=== PATIENT | male | born 2000 | race Hispanic/Latino ===

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

== ENCOUNTER 2019-05-09 16:30 | Emergency (ER) | payer SELFPAY ==
--- NOTE | 2019-05-09 17:15 | EDPHYS ---
Physician Documentation [facility] Name: Mat Bates Jr Age: 19 yrs Sex: Male : 2000 Arrival Date: 05/09/2019 Time: 16:32 Bed 17 Private MD: ED Physician Fawad Lee HPI: 05/09 17:00 This 19 yrs old Male presents to ER via Ambulatory with complaints of Took cp Wrong Medication. 17:00 The patient presents to the emergency department accidently took 2 tablets of 40 mg cp citalopram that he thought were ibuprofen. Patient reports medication is girlfriend's grandmother. Reports feeling jittery. Took medication at 0300 this morning. 17:00 Associated signs and symptoms: Pertinent negatives: decreased level of consciousness, cp diarrhea, shortness of breath, vomiting. Historical: - Allergies: 16:46 PORK/PORCINE PRODUCT DERIVATIVES; jl7 - Home Meds: 16:46 None [Active]; jl7 - PMHx: 16:46 Asthma; jl7 - PSHx: 16:46 None; jl7 - Immunization history:: Adult Immunizations not up to date. - Social history:: Smoking status: Patient/guardian denies using tobacco. - Ebola Screening: : No symptoms or risks identified at this time. ROS: 17:05 Constitutional: Negative for body aches, chills, fever, poor PO intake. cp 17:05 Cardiovascular: Negative for chest pain, palpitations. cp 17:05 Respiratory: Negative for cough, shortness of breath, wheezing. 17:05 Abdomen/GI: Negative for abdominal pain, nausea, vomiting. 17:05 Skin: Negative for rash. 17:05 Neuro: Negative for altered mental status, headache, weakness. 17:05 Psych: Negative for depression, auditory hallucinations, visual hallucinations, suicide gesture, suicidal ideation. 17:05 All other systems are negative. Exam: 17:11 ECG was reviewed by the Attending Physician. cp 17:12 Constitutional: The patient appears in no acute distress, alert, awake, cp non-diaphoretic, non-toxic, well developed, well nourished. 17:12 Head/Face: Normocephalic, atraumatic. cp 17:12 Eyes: Periorbital structures: appear normal, Pupils: equal, round, and reactive to light and accomodation, Conjunctiva: normal, no exudate, no injection, Lids and lashes: appear normal, bilaterally. 17:12 ENT: External ear(s): are unremarkable, Nose: Mouth: is normal, Posterior pharynx: is normal, airway is patent, no erythema, no exudate. 17:12 Chest/axilla: Inspection: normal, Palpation: is normal, no crepitus, no tenderness. 17:12 Cardiovascular: Rate: normal, Rhythm: regular. 17:12 Respiratory: the patient does not display signs of respiratory distress, Respirations: normal, no use of accessory muscles, no retractions, no splinting, no tachypnea, labored breathing, is not present, Breath sounds: are clear throughout, no decreased breath sounds, no stridor, no wheezing. 17:12 Abdomen/GI: Inspection: abdomen appears normal, Palpation: abdomen is soft and non-tender, in all quadrants. 17:12 Back: pain, is absent. 17:12 Skin: no rash present. 17:12 Neuro: Orientation: to person, place \T\ time. Mentation: is normal, Cerebellar function: is grossly normal, Motor: moves all fours, strength is normal, Sensation: is normal. Vital Signs: 16:46 BP 141 / 97; Pulse 70; Resp 16 S; Temp 98.4(O); Pulse Ox 100% on R/A; Weight 120.2 kg jl7 (R); Pain 0/10; 17:27 BP 133 / 85; Pulse 71; Resp 16; Temp 98.5; Pulse Ox 100% ; bp MDM: 16:50 Patient medically screened. cp 17:10 Differential diagnosis: over medication, cardiac arrythmia. cp 17:15 Data reviewed: vital signs, nurses notes, EKG. cp 17:15 Test interpretation: by ED physician or midlevel provider: ECG. Counseling: I had a cp detailed discussion with the patient and/or guardian regarding: the historical points, exam findings, and any diagnostic results supporting the discharge/admit diagnosis, to return to the emergency department if symptoms worsen or persist or if there are any questions or concerns that arise at home. 05/09 17:00 Order name: EKG; Complete Time: 17:00 cp 05/09 17:00 Order name: EKG - Nurse/Tech; Complete Time: 17:12 cp EC:11 Rate is 60 beats/min. Rhythm is regular. VA interval is normal. QRS interval is normal. cp QT interval is normal. T waves are Inverted in lead III. Interpreted by me. Reviewed by me. Administered Medications: No medications were administered Disposition: 17:35 Chart complete. cp 18:25 Co-signature as Attending Physician, Fawad Lee MD. rn Disposition: 05/09/19 17:15 Discharged to Home. Impression: Poisoning by selective serotonin reuptake inhibitors, accidental (unintentional). - Condition is Stable. - Discharge Instructions: Accidental Overdose. - Medication Reconciliation Form, Thank You Letter, Antibiotic Education, Prescription Opioid Use form. - Follow up: Emergency Department; When: As needed; Reason: Worsening of condition. - Problem is new. - Symptoms have improved. Signatures: Fawad Lee MD MD rn Thang Carranza PA PA cp Leal, Jahala, RN RN jl7 Carlos Braun RN RN bp Corrections: (The following items were deleted from the chart) 17:33 17:15 05/09/2019 17:15 Discharged to Home. Impression: Poisoning by selective serotonin bp reuptake inhibitors, accidental (unintentional). Condition is Stable. Forms are Medication Reconciliation Form, Thank You Letter, Antibiotic Education, Prescription Opioid Use. Follow up: Emergency Department; When: As needed; Reason: Worsening of condition. Problem is new. Symptoms have improved. cp
--- NOTE | 2019-05-09 17:15 | ER ---
Nurse's Notes [facility] Name: Mat Bates Jr Age: 19 yrs Sex: Male : 2000 Arrival Date: 05/09/2019 Time: 16:32 Bed 17 Private MD: Diagnosis: Poisoning by selective serotonin reuptake inhibitors, accidental (unintentional) Presentation: 05/09 16:42 Presenting complaint: Patient states: "I accidently took 2 pills that I thought were jl7 fever reducers at 3 am this morning but they were a depression medicine." Reports taking two 40 mg citalopram, reports "I feel jittery and nauseous. Just weird." Reports symptoms started around 1400. Transition of care: patient was not received from another setting of care. Onset of symptoms was May 09, 2019 at 14:00. Risk Assessment: Do you want to hurt yourself or someone else? Patient reports no desire to harm self or others. Initial Sepsis Screen: Does the patient meet any 2 criteria? No. Patient's initial sepsis screen is negative. Does the patient have a suspected source of infection? No. Patient's initial sepsis screen is negative. Care prior to arrival: None. 16:42 Method Of Arrival: Ambulatory [facility] 16:42 Acuity: RONIT 3 jl7 Triage Assessment: 16:46 General: Appears in no apparent distress. uncomfortable, Behavior is calm, cooperative, jl7 appropriate for age. Pain: Denies pain. Neuro: Level of Consciousness is awake, alert, obeys commands, Oriented to person, place, time, situation. Cardiovascular: Patient's skin is warm and dry. Respiratory: Airway is patent Respiratory effort is even, unlabored, Respiratory pattern is regular, symmetrical. GI: Reports nausea. Derm: Skin is pink, warm \\T\\ dry. Historical: - Allergies: 16:46 PORK/PORCINE PRODUCT DERIVATIVES; jl7 - Home Meds: 16:46 None [Active]; jl7 - PMHx: 16:46 Asthma; jl7 - PSHx: 16:46 None; jl7 - Immunization history:: Adult Immunizations not up to date. - Social history:: Smoking status: Patient/guardian denies using tobacco. - Ebola Screening: : No symptoms or risks identified at this time. Screenin:59 Abuse screen: Denies threats or abuse. Denies injuries from another. Nutritional bp screening: No deficits noted. Tuberculosis screening: No symptoms or risk factors identified. Fall Risk None identified. Assessment: 16:46 General: SEE TRIAGE NOTE. bp 17:26 Reassessment: PT D/C HOME AMBULATORY, DX WITH ACCIDENTAL SSRI POISONING. bp Vital Signs: 16:46 BP 141 / 97; Pulse 70; Resp 16 S; Temp 98.4(O); Pulse Ox 100% on R/A; Weight 120.2 kg jl7 (R); Pain 0/10; 17:27 BP 133 / 85; Pulse 71; Resp 16; Temp 98.5; Pulse Ox 100% ; bp ED Course: 16:32 Patient arrived in ED. rg4 16:46 Triage completed. jl7 16:46 Arm band placed on right wrist. jl7 16:50 Thang Carranza PA is PHCP. cp 16:50 Fawad Lee MD is Attending Physician. cp 16:51 Carlos Braun, RN is Primary Nurse. bp 16:59 Patient has correct armband on for positive identification. Bed in low position. Call bp light in reach. Side rails up X2. Adult w/ patient. 17:23 EKG done, by technology lab teacher. reviewed by Thang SCANLON. 3 17:33 No provider procedures requiring assistance completed. Patient did not have IV access bp during this emergency room visit. Administered Medications: No medications were administered Outcome: 17:15 Discharge ordered by MD. cp 17:33 Discharged to home ambulatory, with family. bp 17:33 Condition: stable 17:33 Discharge instructions given to patient, Instructed on discharge instructions, follow up and referral plans. Demonstrated understanding of instructions, follow-up care. 17:33 Patient left the ED. bp Signatures: Thang Carranza PA PA cp Garcia, Rubi rg4 Karen Fernandez RN RN jl7 Carlos Braun, JESUS MANUEL RN Michell Ramesh 3
[2019-05-09 17:43] VITALS: O2SAT 100
[2019-05-09 17:44] VITALS: BP 133/85; TEMP 98.5
--- NOTE | 2019-05-10 12:14 | EKG ---
Test Date: 2019-05-09 Test Time: 17:09:51 Client Care Coordinator: ADEOLA MEASUREMENT RESULTS: Intervals: Rate: 60 UT: 146 QRSD: 84 QT: 386 QTc: 386 [place]: P: 26 UT: 146 QRS: 75 T: 22 INTERPRETIVE STATEMENTS: Normal sinus rhythm Normal ECG Compared to ECG 12/07/2018 01:26:51 No significant changes Electronically Signed On 05-10-19 12:09:33 CDT by Waylon Norwood
== END 2019-05-09 17:33 | disposition home or self-care (01) ==
LOC: ER 16:30
DX: T43.221A Poisoning by selective serotonin reuptake inhibitors, accidental (unintentional), initial encounter (principal); Z91.018 Allergy to other foods
CPT/HCPCS: 93005; 99283

== ENCOUNTER 2020-10-30 14:32 | Emergency (ER) | payer SELFPAY ==
--- NOTE | 2020-10-30 15:48 | RAD REPORT ---
EXAM DESCRIPTION: RAD - Chest Single View - 10/30/2020 3:41 pm CLINICAL HISTORY: cough, sob COMPARISON: Portable November 2018 TECHNIQUE: AP portable chest image was obtained 10/30/2020 3:41 pm . FINDINGS: Lungs are clear. Heart and vasculature are normal. No measurable pleural effusion and no p neumothorax. No acute bony abnormality seen. No acute aortic findings suspected. IMPRESSION: No acute cardiopulmonary process. No significant change from comparison study.
[2020-10-30] MEDS ORDERED: NA CHLORIDE 0.9% 1,000 ML ONE (15:55)
[2020-10-30] MEDS ORDERED: ONDANSETRON 4 MG/2 ML VIAL ONE (15:55)
[2020-10-30 16:23] LABS: Absolute Lymphocytes (CBC) 1.5 K/uL (0.7-4.9); Basophils % 0.4 % (0-1.3); Hematocrit 47.3 % (39.6-49.0); Lymphocytes % 15.2 % (15.3-44.8); MPV 9.3 fL (7.6-11.3); RBC Red Blood Cell Count 5.78 M/uL (4.33-5.43)
[2020-10-30 16:35] LABS: ALT/SGPT 55 U/L (12-78); AST/SGOT 25 U/L (15-37); Albumin 4.5 g/dL (3.4-5.0); Alkaline Phosphatase 91 U/L (45-117); BUN Blood Urea Nitrogen 10 mg/dL (7-18); Bicarbonate 29 mmol/L (21-32); Bilirubin Direct 0.2 mg/dL (0-0.2); Bilirubin Total 1.3 mg/dL (0.2-1.0); Glucose Level 92 mg/dL (74-106); Lipase 61 U/L (73-393); Potassium 3.6 mmol/L (3.5-5.1); Protein, Total 8.7 g/dL (6.4-8.2); Sodium Level 139 mmol/L (136-145)
[2020-10-30 17:03] LABS: SARS-COV-2 RT PCR POSITIVE (NEGATIVE)
--- NOTE | 2020-10-30 17:18 | EDPHYS ---
Physician Documentation [facility] Name: Mat Bates Jr Age: 20 yrs Sex: Male : 2000 Arrival Date: 10/30/2020 Time: 14:35 Bed 17 Private MD: ED Physician Serg Hooks HPI: 10/30 15:19 This 20 yrs old Male presents to ER via Ambulatory with complaints of Body jmm Aches, Breathing Difficulty. 15:19 The patient presents to the emergency department with nausea, vomiting, diarrhea. jmm Onset: The symptoms/episode began/occurred gradually, 2 day(s) ago. Possible causes: unknown. The symptoms are aggravated by nothing. The symptoms are alleviated by nothing. Onset: The symptoms/episode began/occurred acutely. Associated signs and symptoms: Pertinent positives: cough, shortness of breath, Pertinent negatives: abdominal pain. Modifying factors: The patient symptoms are alleviated by. This is a 20 year old male with a history of asthma that presents to the ED with complaints of vomiting, diarrhea, beginning approx 2 days ago. Patient states the vomiting has decreased but states he still has ongoing diarrhea. Patient also complains of cough, sob, he attributes to asthma. Symptoms have been relieved with the patient's albuterol inhaler. . Historical: - Allergies: 14:48 PORK/PORCINE PRODUCT DERIVATIVES; aa5 - Home Meds: 14:48 inhaler [Active]; aa5 - PMHx: 14:48 Asthma; aa5 - PSHx: 14:48 None; aa5 - Immunization history:: Adult Immunizations unknown. - Social history:: Smoking status: Patient/guardian denies using tobacco. ROS: 15:19 Constitutional: Positive for body aches. jmm 15:19 Respiratory: Positive for cough, wheezing. 15:19 Abdomen/GI: Positive for vomiting, diarrhea. 15:19 All other systems are negative. Exam: 15:19 Constitutional: This is a well developed, well nourished patient who is awake, alert, jmm and in no acute distress. Head/Face: atraumatic. Eyes: EOMI, no conjunctival erythema appreciated ENT: Moist Mucus Membranes Neck: Trachea midline, Supple Chest/axilla: Normal chest wall appearance and motion. Cardiovascular: Regular rate and rhythm. No edema appreciated Respiratory: Normal respirations, no respiratory distress appreciated 15:19 Back: Normal ROM Skin: General appearance color normal MS/ Extremity: Moves all extremities, no obvious deformities appreciated, no edema noted to the lower extremities Neuro: Awake and alert, normal gait Psych: Behavior is normal, Mood is normal, Patient is cooperative and pleasant 15:19 Abdomen/GI: Inspection: abdomen appears normal, Bowel sounds: normal, Palpation: abdomen is soft and non-tender, in all quadrants. Vital Signs: 14:36 BP 140 / 94; Pulse 79; Resp 16 S; Temp 98.8(O); Pulse Ox 100% on R/A; Weight 127.01 kg aa5 (R); Height 5 ft. 10 in. (177.80 cm) (R); Pain 5/10; 15:58 BP 128 / 90; Pulse 67; Resp 17; Pulse Ox 98% ; bp 17:32 BP 137 / 80; Pulse 65; Resp 16; Temp 98.9; Pulse Ox 99% ; bp 14:36 Body Mass Index 40.18 (127.01 kg, 177.80 cm) aa5 MDM: 14:54 Patient medically screened. [facility] 17:16 Data reviewed: vital signs, nurses notes. Counseling: I had a detailed discussion with latoya the patient and/or guardian regarding: the historical points, exam findings, and any diagnostic results supporting the discharge/admit diagnosis, lab results, radiology results, the need for outpatient follow up, the need for further work-up and treatment in the hospital, to return to the emergency department if symptoms worsen or persist or if there are any questions or concerns that arise at home. ED course: Patient is alert and non toxic in appearance in the ED. No signs of resp distress. Patient advised to follow up with pcp and otherwise given strict return precautions. Patient understood and agrees with the plan of care. . 10/30 15:05 Order name: Basic Metabolic Panel; Complete Time: 16:36 [facility] 10/30 15:05 Order name: CBC with Diff; Complete Time: 16:27 [facility] 10/30 15:05 Order name: Hepatic Function; Complete Time: 16:36 [facility] 10/30 15:05 Order name: Lipase; Complete Time: 16:36 [facility] 10/30 15:05 Order name: IV Saline Lock; Complete Time: 15:51 [facility] 10/30 15:05 Order name: Labs collected and sent; Complete Time: 15:51 [facility] 10/30 15:19 Order name: Chest Single View XRAY; Complete Time: 15:50 [facility] 10/30 17:03 Order name: COVID-19/FLU A+B; Complete Time: 17:15 EDFL Administered Medications: 15:50 Drug: NS 0.9% 1000 ml Route: IV; Rate: 1 bolus; Site: right antecubital; bp 17:33 Follow up: IV Status: Completed infusion; IV Intake: 1000ml bp 15:50 Drug: Zofran (Ondansetron) 4 mg Route: IVP; Site: right antecubital; bp 17:33 Follow up: Response: No adverse reaction bp Disposition: 17:48 Co-signature as Attending Physician, Serg Hooks MD I agree with the assessment and kdr plan of care. Disposition: 10/30/20 17:17 Discharged to Home. Impression: Coronavirus infection, unspecified. - Condition is Stable. - Discharge Instructions: COVID-19. - Prescriptions for Zofran ODT 4 mg Oral tablet,disintegrating - place 1 tablet by TRANSLINGUAL route every 4-6 hours; 20 tablet. - Medication Reconciliation Form, Thank You Letter, Antibiotic Education, Prescription Opioid Use form. - Follow up: Private Physician; When: 2 - 3 days; Reason: Recheck today's complaints, Continuance of care, Re-evaluation by your physician. Signatures: Dispatcher [employer] [facility] Serg Hooks MD MD kdr Mickail, Joel, PA PA Nay Andrews, RN RN aa5 Carlos Braun, RN RN bp Corrections: (The following items were deleted from the chart) 15:57 15:19 CORONAVIRUS+MR.LAB.BRZ ordered. [facility] 15:57 15:19 Influenza Screen (A \T\ B)+BA.LAB.BRZ ordered. [facility] 17:34 17:17 10/30/2020 17:17 Discharged to Home. Impression: Coronavirus infection, bp unspecified. Condition is Stable. Forms are Medication Reconciliation Form, Thank You Letter, Antibiotic Education, Prescription Opioid Use. Follow up: Private Physician; When: 2 - 3 days; Reason: Recheck today's complaints, Continuance of care, Re-evaluation by your physician. latoya
--- NOTE | 2020-10-30 17:18 | ER ---
Nurse's Notes [facility] Name: Mat Bates Jr Age: 20 yrs Sex: Male : 2000 Arrival Date: 10/30/2020 Time: 14:35 Bed 17 Private MD: Diagnosis: Coronavirus infection, unspecified Presentation: 10/30 14:36 Chief complaint: Patient states: "I started with nausea, vomiting, and diarrhea about a aa5 week ago and last night I was sweating and having chills and my whole body hurts now". Pt denies cough. 14:36 Coronavirus screen: diarrhea, nausea, vomiting. Client presents with at least one sign aa5 or symptom that may indicate coronavirus-19. Standard/surgical mask placed on the client. Provider contacted for isolation considerations. Ebola Screen: Patient negative for fever greater than or equal to 101.5 degrees Fahrenheit, and additional compatible Ebola Virus Disease symptoms. Initial Sepsis Screen: Does the patient meet any 2 criteria? No. Patient's initial sepsis screen is negative. Does the patient have a suspected source of infection? No. Patient's initial sepsis screen is negative. Risk Assessment: Do you want to hurt yourself or someone else? Patient reports no desire to harm self or others. Onset of symptoms was October 2020. 14:36 Acuity: RONIT 3 aa5 14:36 Method Of Arrival: Ambulatory aa5 Triage Assessment: 14:45 General: Appears in no apparent distress. uncomfortable, Behavior is cooperative, bp appropriate for age, anxious. Pain: Complains of pain in GENERALIZED. EENT: No deficits noted. Neuro: No deficits noted. Cardiovascular: No deficits noted. Respiratory: Reports shortness of breath Onset: The symptoms/episode began/occurred yesterday, the patient has mild shortness of breath. GI: No signs and/or symptoms were reported involving the gastrointestinal system. : No signs and/or symptoms were reported regarding the genitourinary system. Derm: No deficits noted. Musculoskeletal: No deficits noted. Historical: - Allergies: 14:48 PORK/PORCINE PRODUCT DERIVATIVES; aa5 - Home Meds: 14:48 inhaler [Active]; aa5 - PMHx: 14:48 Asthma; aa5 - PSHx: 14:48 None; aa5 - Immunization history:: Adult Immunizations unknown. - Social history:: Smoking status: Patient/guardian denies using tobacco. Screenin:50 Abuse screen: Denies threats or abuse. Denies injuries from another. Nutritional bp screening: No deficits noted. Tuberculosis screening: No symptoms or risk factors identified. Fall Risk None identified. Assessment: 14:45 General: SEE TRIAGE NOTE. bp 15:58 Reassessment: No changes from previously documented assessment. Patient and/or family bp updated on plan of care and expected duration. Pain level reassessed. Cardiovascular: Rhythm is sinus rhythm. Respiratory: Airway is patent Respiratory effort is even, unlabored, Breath sounds are clear bilaterally. 17:32 Reassessment: PT D/C HOME AMBULATORY, DX WITH COVID+. bp Vital Signs: 14:36 BP 140 / 94; Pulse 79; Resp 16 S; Temp 98.8(O); Pulse Ox 100% on R/A; Weight 127.01 kg aa5 (R); Height 5 ft. 10 in. (177.80 cm) (R); Pain 5/10; 15:58 BP 128 / 90; Pulse 67; Resp 17; Pulse Ox 98% ; bp 17:32 BP 137 / 80; Pulse 65; Resp 16; Temp 98.9; Pulse Ox 99% ; bp 14:36 Body Mass Index 40.18 (127.01 kg, 177.80 cm) aa5 ED Course: 14:35 Patient arrived in ED. mr 14:36 Carlos Braun, JESUS MANUEL is Primary Nurse. bp 14:36 Arm band placed on. aa5 14:37 [facility]patrick [facility] 14:37 Serg Hooks MD is Attending Physician. [facility] 14:47 Triage completed. aa5 15:41 Chest Single View XRAY In Process Unspecified. EDMS 15:50 Patient has correct armband on for positive identification. Bed in low position. Call bp light in reach. Side rails up X2. 15:50 Inserted saline lock: 20 gauge in right antecubital area, using aseptic technique. bp Blood collected. 17:32 No provider procedures requiring assistance completed. IV discontinued, intact, bp bleeding controlled, No redness/swelling at site. Pressure dressing applied. Administered Medications: 15:50 Drug: NS 0.9% 1000 ml Route: IV; Rate: 1 bolus; Site: right antecubital; bp 17:33 Follow up: IV Status: Completed infusion; IV Intake: 1000ml bp 15:50 Drug: Zofran (Ondansetron) 4 mg Route: IVP; Site: right antecubital; bp 17:33 Follow up: Response: No adverse reaction bp Intake: 17:33 IV: 1000ml; Total: 1000ml. bp Outcome: 17:17 Discharge ordered by . latoya 17:32 Discharged to home ambulatory. bp 17:32 Condition: stable 17:32 Discharge instructions given to patient, Instructed on discharge instructions, follow up and referral plans. medication usage, Demonstrated understanding of instructions, follow-up care, medications, Prescriptions given X 1. 17:34 Patient left the ED. bp Signatures: Dispatcher [employer] EDMS Manish Kirkpatrick PA PA jmm Rivera, Mary mr Tineo, Nay, RN RN aa5 Carlos Braun RN RN bp
[2020-10-30 17:59] VITALS: BP 137/80; TEMP 98.9; O2SAT 99
== END 2020-10-30 17:34 | disposition home or self-care (01) ==
LOC: ER 14:32
DX: U07.1 COVID-19 (principal); J45.909 Unspecified asthma, uncomplicated
CPT/HCPCS: 0240U; 36415; 71045; 80048; 80076; 83690; 85025; 96361; 96374; 99284; J2405; J7030

== ENCOUNTER 2021-03-14 23:30 | Emergency (ER) | payer OTHER, SELFPAY ==
[2021-03-15] MEDS ORDERED: ACETAMINOPHEN 500 MG TAB ONE (00:06)
[2021-03-15] MEDS ORDERED: IBUPROFEN 400 MG TAB ONE (00:07)
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
[2021-03-15 01:13] VITALS: TEMP 98.4
[2021-03-15 01:15] VITALS: BP 149/89; O2SAT 100
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
== END 2021-03-15 01:07 | disposition home or self-care (01) ==
LOC: ER 23:30
DX: M25.511 Pain in right shoulder (principal); V49.50XA Passenger injured in collision with unspecified motor vehicles in traffic accident, initial encounter; Z91.018 Allergy to other foods
CPT/HCPCS: 71045; 99284; G0390

== ENCOUNTER 2025-03-01 08:53 | Emergency (ER) | payer SELFPAY ==
[2025-03-01] MEDS ORDERED: HYDROCODONE/APAP 7.5/325 MG TAB ONE (09:31)
[2025-03-01 09:41] LABS: Urine Microscopic Reflex YN NO UMIC
--- NOTE | 2025-03-01 09:43 | RAD REPORT ---
EXAMINATION: CT ABDOMEN AND PELVIS WITHOUT CONTRAST CLINICAL INDICATION: FLANK PAIN TECHNIQUE: CT abdomen and pelvis was performed, without IV contrast, as per department protocol. Axia l, sagittal and coronal reconstructions were obtained. One or more of the following dose reduction techniques were used: Automated exposure control, adjustment of the mA and kV according to the patien t size, and iterative reconstruction. Unless otherwise specified, incidental findings do not require dedicated imaging follow-up. COMPARISON: No prior exam. FINDINGS: The lack of intravenous contrast limits the sensitivity of this exam for evaluation of solid visceral organs, vascular structures, and retroperitoneum. LOWER CHEST: The visualized lung bases are clear. LIVER:Normal in size and contour. No focal lesion. Cholelithiasis. SPLEEN: Normal size. No focal lesion. PANCREAS: No mass, ductal dilation, or marito-pancreatic fluid. ADRENALS: Normal; no mass. KIDNEYS AND URETERS: Normal size and contour. No hydronephrosis. URINARY BLADDER: Normal contour. GASTROINTESTINAL TRACT: No evidence of bowel obstruction, significant free fluid, free air or abscess . APPENDIX: Normal appendix. LYMPH NODES: No lymphadenopathy. MUSCULOSKELETAL: Mild multilevel spinal degenerative changes. ADDITIONAL FINDINGS: None. IMPRESSION: Cholelithiasis.
--- NOTE | 2025-03-01 09:53 | ER ---
Nurse's Notes [facility] Name: Mat Bates Jr Age: 25 yrs Sex: Male : 2000 Arrival Date: 03/01/2025 Time: 08:53 Bed 11 Private MD: Diagnosis: Low back pain Presentation: 03/01 09:07 Chief complaint: Patient states: BACK PAIN THAT BEGAN AROUND 1PM, TOOK PRESCRIBED RX dd2 METHOCARBAMOL AND KETOROLAC WITH NO RELIEF. Coronavirus screen: At this time, the client does not indicate any symptoms associated with coronavirus-19. Ebola Screen: No symptoms or risks identified at this time. Initial Sepsis Screen: Does the patient meet any 2 criteria? No. Patient's initial sepsis screen is negative. Does the patient have a suspected source of infection? No. Patient's initial sepsis screen is negative. Risk Assessment: Do you want to hurt yourself or someone else? Patient reports no desire to harm self or others. Onset of symptoms was February 28, 2025 at 13:00. 09:07 Method Of Arrival: Ambulatory dd2 09:07 Acuity: RONIT 4 dd2 Triage Assessment: 09:09 General: Appears in no apparent distress. uncomfortable, Behavior is calm, cooperative, dd2 appropriate for age. Pain: Complains of pain in low back area and mid back area Pain currently is 8 out of 10 on a pain scale. Musculoskeletal: Circulation, motion, and sensation intact. Range of motion: intact in all extremities, Reports pain in low back area and mid back area. Historical: - Allergies: 09:09 PORK/PORCINE PRODUCT DERIVATIVES; dd2 - PMHx: 09:09 Asthma; dd2 - PSHx: 09:09 right arm; dd2 - Immunization history:: Adult Immunizations up to date. - Infectious Disease History:: Denies. - Social history:: Smoking status: Reported history of juuling and/or vaping. Screenin:18 [facility] ED Fall Risk Assessment (Adult) History of falling in the last 3 months, bp including since admission No falls in past 3 months (0 pts) Confusion or Disorientation No (0 pts) Intoxicated or Sedated No (0 pts) Impaired Gait No (0 pts) Mobility Assist Device Used No (0 pt) Altered Elimination No (0 pt) Score/Fall Risk Level 0 - 2 = Low Risk Oriented to surroundings. Abuse screen: Denies threats or abuse. Denies injuries from another. Nutritional screening: No deficits noted. Tuberculosis screening: No symptoms or risk factors identified. Vital Signs: 09:07 BP 132 / 109; Pulse 67; Resp 16; Temp 98.1; Pulse Ox 100% on R/A; Weight 108.86 kg; dd2 Pain 8/10; 09:07 Pain Scale: Adult dd2 ED Course: 08:56 Patient arrived in ED. cj3 08:57 Kyung Barker [facility]-C [facility]. kb 08:57 Ambrosio Rodríguez DO is Attending Physician. kb 09:09 Triage completed. dd2 09:09 Arm band placed on right wrist. dd2 09:36 CT Stone Protocol In Process Unspecified. EDMS 09:41 UA Rfx Andrea Cult if indicated Sent. dd2 10:18 Carlos Braun, RN is Primary Nurse. bp 10:18 Patient has correct armband on for positive identification. bp 10:18 No provider procedures requiring assistance completed. Patient did not have IV access bp during this emergency room visit. Administered Medications: 09:41 Drug: Hydrocodone-Acetaminophen PO (7.5 mg-325 mg) 1 tabs PO once Route: PO; dd2 10:19 Follow up: Response: No adverse reaction bp Outcome: 09:53 Discharge ordered by MD. kb 10:18 Discharged to home ambulatory, bp 10:18 Condition: stable 10:18 Discharge instructions given to patient, Instructed on discharge instructions, follow up and referral plans. medication usage, Demonstrated understanding of instructions, follow-up care, medications, Prescriptions given X 2, 10:19 Patient left the ED. bp Signatures: Dispatcher [employer] EDMS Kyung Barker FNP-C FNP-Ckb Peltier, Brian, RN RN JENNIFER Forde RN RN dd2 Tamiko Treviño cj3
--- NOTE | 2025-03-01 09:54 | EDPHYS ---
Physician Documentation [facility] Name: Mat Bates Jr Age: 25 yrs Sex: Male : 2000 Arrival Date: 03/01/2025 Time: 08:53 Bed 11 Private MD: ED Physician Ambrosio Rodríguez HPI: 03/01 09:54 This 25 yrs old Male presents to ER via Ambulatory with complaints of Back kb Pain. 09:54 Pt is a 25 year old male who presents for pain to low back that started at 1300 kb yesterday while sitting. States he was seen for similar pain recently and was told it was nerve pain. Denies injury, trauma, n/v/d, urinary symptoms, bowel/bladder issues, numbness/tingling. Historical: - Allergies: 09:09 PORK/PORCINE PRODUCT DERIVATIVES; dd2 - PMHx: 09:09 Asthma; dd2 - PSHx: 09:09 right arm; dd2 - Immunization history:: Adult Immunizations up to date. - Infectious Disease History:: Denies. - Social history:: Smoking status: Reported history of juuling and/or vaping. ROS: 09:54 Constitutional: As per HPI kb Exam: 09:54 Constitutional: This is a well developed, well nourished patient who is awake, alert, kb and in no acute distress. Head/Face: Normocephalic, atraumatic. ENT: Moist Mucous membranes Cardiovascular: Regular rate Respiratory: Respirations even and unlabored. No increased work of breathing. Talking in full sentences Abdomen/GI: Soft, non-tender. No distention Skin: Warm, dry with normal turgor. Normal color. MS/ Extremity: Pulses equal, no cyanosis. Neurovascular intact. Full, normal range of motion. Neuro: Awake and alert, GCS 15, oriented to person, place, time, and situation. 09:54 Back: pain, that is mild, of the low back area and mid back area, ROM is normal, normal spinal alignment noted, Vital Signs: 09:07 BP 132 / 109; Pulse 67; Resp 16; Temp 98.1; Pulse Ox 100% on R/A; Weight 108.86 kg; dd2 Pain 8/10; 09:07 Pain Scale: Adult dd2 MDM: 08:57 Medical Screening Exam initiated kb 09:57 Differential diagnosis: strain, Herniated disc UTI, kidney stone. Data reviewed: vital kb signs, nurses notes. I considered the following discharge prescriptions or medication management in the emergency department Antibiotics: At this time antibiotics are not recommended. Counseling: I had a detailed discussion with the patient and/or guardian regarding the historical points, exam findings, and any diagnostic results supporting the discharge/admit diagnosis, lab results, radiology results, the need for outpatient follow up, a family practitioner, to return to the emergency department if symptoms worsen or persist or if there are any questions or concerns that arise at home. 09:58 I considered the following discharge prescriptions or medication management in the emergency department norflex and ibuprofen prescribed for pain management. 03/01 09:07 Order name: UA Rfx Andrea Cult if indicated 03/01 09:12 Order name: CT Stone Protocol; Complete Time: 09:44 kb Administered Medications: 09:41 Drug: Hydrocodone-Acetaminophen PO (7.5 mg-325 mg) 1 tabs PO once Route: PO; dd2 10:19 Follow up: Response: No adverse reaction bp Disposition: 10:51 I was immediately available on-site in the Emergency Department for consultation in the ms3 care of the patient. Disposition Summary: 03/01/25 09:53 Discharge Ordered Notes: Location: Home Condition: Stable Diagnosis - Low back pain Followup: kb - With: Emergency Department - When: As needed - Reason: Worsening of condition Followup: kb - With: Private Physician - When: 2 - 3 days - Reason: Recheck today's complaints, Continuance of care, Re-evaluation by your physician Discharge Instructions: - Discharge Summary Sheet - Acute Back Pain, Adult Forms: - Medication Reconciliation Form kb - Antibiotic Education kb - Prescription Opioid Use kb - Patient Portal Instructions - Leadership Thank You Letter Prescriptions: - Ibuprofen 800 mg Oral Tablet - take 1 tablet ORAL route every 8 hours As needed take with food; 30 tablet; kb Refills: 0, Product Selection Permitted - orphenadrine citrate 100 mg Oral Tablet Sustained Release - take 1 tablet ORAL route 2 times per day As needed; 20 tablet; Refills: 0, kb Product Selection Permitted Signatures: Dispatcher [employer] Kyung Abebe, Ambrosio Arroyo DO DO ms3 JENNIFER RINCON RN RN dd2 Carlos Braun RN bp
[2025-03-01 10:40] VITALS: BP 132/109; TEMP 98.1; O2SAT 100
== END 2025-03-01 10:19 | disposition home or self-care (01) ==
LOC: ER 08:53
DX: M54.50 Low back pain, unspecified (principal); J45.909 Unspecified asthma, uncomplicated; F17.290 Nicotine dependence, other tobacco product, uncomplicated; Z91.014 Allergy to mammalian meats
CPT/HCPCS: 74176; 76377; 81003; 99283

== ENCOUNTER 2025-03-01 22:11 | Emergency (ER) | payer SELFPAY ==
[2025-03-01] MEDS ORDERED: METHOCARBAMOL 1,000 MG/10 ML VIAL ONE (23:06)
[2025-03-01] MEDS ORDERED: NA CHLORIDE 0.9% 1,000 ML ONE (23:06)
[2025-03-01] MEDS ORDERED: NA CHLORIDE 0.9% 100 ML ONE (23:07)
[2025-03-01 23:51] LABS: Absolute Lymphocytes (CBC) 1.3 K/uL (0.7-4.9); Hematocrit 43.0 % (39.6-49.0); Hemoglobin 14.9 g/dL (13.6-17.9); MCH 28.6 pg (27.0-35.0); MCHC 34.6 g/dL (32.0-36.0); MCV 82.9 fL (80-100); MPV 9.1 fL (7.6-11.3); Nucleated RBC Absolute Count 0.0 (0-0); Nucleated Red Blood Cells % 0.0 % (0-0); RBC Red Blood Cell Count 5.19 M/uL (4.33-5.43); White Blood Count 8.50 thou/uL (4.3-10.9)
[2025-03-02 00:01] LABS: METHAMPHETAM NEGATIVE (NEGATIVE); THC Cannibis POSITIVE (NEGATIVE)
[2025-03-02 00:09] LABS: ALT/SGPT 354.0 U/L (16-61); AST/SGOT 155.0 U/L (15-37); Albumin 4.1 g/dL (3.4-5.0); Albumin/Globulin Ratio 1.1 (1.1-1.8); Alkaline Phosphatase 232.0 U/L (45-117); Anion Gap 9.5 mEq/L (5.0-15.0); BUN Blood Urea Nitrogen 11.0 mg/dL (7-18); Globulin 3.6 g/dL (2.3-3.5); Glucose Level 118.0 mg/dL (74-106); Lipase 30.0 U/L (13-75); Potassium 3.5 mEq/L (3.5-5.1)
--- NOTE | 2025-03-02 01:38 | EDPHYS ---
Physician Documentation [facility] Name: Mat Bates Jr Age: 25 yrs Sex: Male : 2000 Arrival Date: 03/01/2025 Time: 22:11 Bed 6 Private MD: ED Physician Fawad Lee HPI: 03/01 22:55 This 25 yrs old Male presents to ER via Ambulatory with complaints of Back cp Pain. 22:55 The patient presents with pain that is acute, with no known mechanism of injury. The cp symptoms are located in the mid back area. 22:55 Onset: The symptoms/episode began/occurred yesterday. cp 22:55 The pain does not radiate. Associated signs and symptoms: Pertinent negatives: cp abdominal pain, constipation, fever, diarrhea. 22:55 The patient has been recently seen at the [facility] Emergency cp Department, today, for similar complaints CT scan was performed, given pain medication. Historical: - Allergies: 22:47 PORK/PORCINE PRODUCT DERIVATIVES; lg3 - PMHx: 22:47 Asthma; lg3 - PSHx: 22:47 right arm; lg3 - Immunization history:: Adult Immunizations up to date. - Infectious Disease History:: Denies. - Social history:: Smoking status: Patient denies any tobacco usage or history of. Patient/guardian denies using alcohol, street drugs. ROS: 23:00 Back: Positive for pain at rest, pain with movement, of the left subscapular area, cp right subscapular area and mid back area, 23:00 Eyes: Negative for injury, pain, redness, and discharge, cp 23:00 Constitutional: Negative for body aches, chills, fever, poor PO intake, 23:00 ENT: Negative for drainage from ear(s), ear pain, sore throat, difficulty swallowing, difficulty handling secretions, 23:00 Cardiovascular: Negative for chest pain, 23:00 Respiratory: Negative for cough, shortness of breath, wheezing, 23:00 Abdomen/GI: Negative for abdominal pain, vomiting, diarrhea, constipation, 23:00 : Negative for urinary symptoms, testicular pain 23:00 Neuro: Negative for altered mental status, dizziness, headache, weakness, 23:00 All other systems are negative, Exam: 23:05 Constitutional: The patient appears in no acute distress, alert, awake, cp non-diaphoretic, non-toxic, well developed, well nourished, uncomfortable, 23:05 Head/Face: Normocephalic, atraumatic. cp 23:05 Eyes: Periorbital structures: appear normal, Conjunctiva: normal, no exudate, no injection, Sclera: no appreciated abnormality, Lids and lashes: appear normal, bilaterally, 23:05 ENT: External ear(s): are unremarkable, Nose: is normal, Mouth: Lips: moist, Oral mucosa: moist, Posterior pharynx: Airway: no evidence of obstruction, patent, 23:05 Chest/axilla: Inspection: normal, Palpation: is normal, no crepitus, no tenderness, 23:05 Cardiovascular: Rate: Rhythm: 23:05 Respiratory: the patient does not display signs of respiratory distress, Respirations: normal, Breath sounds: are clear throughout, no decreased breath sounds, no stridor, no wheezing, 23:05 Abdomen/GI: Inspection: abdomen appears normal, Bowel sounds: active, all quadrants, cp Palpation: abdomen is soft and non-tender, in all quadrants, 23:05 Back: pain, that is moderate, of the left subscapular area, right subscapular area and cp mid back area, ROM is painful, with all movement, 23:05 Skin: cellulitis, is not appreciated, no rash present. 23:05 Neuro: Orientation: to person, place \T\ time. Mentation: is normal, Motor: moves all fours, strength is normal, Sensation: is normal, Gait: is steady, at a normal pace, without difficulty, Vital Signs: 22:45 BP 143 / 92; Pulse 71; Resp 16 S; Temp 97.8(O); Pulse Ox 100% on R/A; Weight 117.93 kg lg3 (R); Height 5 ft. 11 in. (R); Pain 10/10; 23:50 BP 124 / 76; Pulse 65; Resp 17; Pulse Ox 98% ; jj7 08/14 00:45 BP 132 / 74; Pulse 58; Resp 20; Pulse Ox 99% ; jj7 02:00 BP 127 / 84; Pulse 73; Resp 20; Pulse Ox 98% ; Pain 0/10; jj7 03:00 BP 130 / 77; Pulse 61; Resp 20; Pulse Ox 98% ; jj7 04:00 BP 130 / 79; Pulse 55; Resp 20; Pulse Ox 96% ; jj7 03/01 22:45 Body Mass Index 36.26 (117.93 kg, 180.34 cm) lg3 08 22:45 Pain Scale: Adult lg3 02:00 Pain Scale: Adult jj7 MDM: 03/01 22:44 Medical Screening Exam initiated 03/02 00:00 Differential diagnosis: Cholelithiasis Pyelonephritis ruptured disc, spinal injury, cp Ureterolithiasis vertebral fracture, pancreatitis, choledocholithiasis. 01:40 Data reviewed: vital signs, nurses notes, lab test result(s), radiologic studies, CT cp scan, ultrasound, I have discussed the patient's presentation/case with the attending Emergency Department Physician;. 01:40 I considered the following discharge prescriptions or medication management in the emergency department Medications were administered in the Emergency Department. See MAR. Counseling: I had a detailed discussion with the patient and/or guardian regarding the historical points, exam findings, and any diagnostic results supporting the discharge/admit diagnosis, lab results, radiology results, the need to transfer to another facility, for higher level of care, [facility] does not immediately have the required specialist. Response to treatment: the patient's symptoms have mildly improved after treatment. 03/01 22:54 Order name: CBC with Diff; Complete Time: 00:10 03/02 00:10 Interpretation: Normal except: FANNY% 74.3. 03/01 22:54 Order name: CMP; Complete Time: 00:10 03/01 22:54 Order name: Lipase; Complete Time: 00:10 03/01 22:54 Order name: UDS; Complete Time: 00:10 03/01 22:54 Order name: D-Dimer; Complete Time: 00:10 03/02 01:34 Order name: Lactate w/ 2H reflex if indic.; Complete Time: :44 03/02 01:34 Order name: Blood Culture Adult (2) 03/01 22:54 Order name: XRAY Chest (1 view); Complete Time: :44 03/02 00:15 Order name: CT Abd/Pelvis - IV Contrast Only; Complete Time: 44 03/02 01:03 Order name: US Abdomen Limited: gallbladder; Complete Time: 01:44 cp 03/01 22:54 Order name: IV Saline Lock; Complete Time: 23:35 cp 03/01 22:54 Order name: Labs collected and sent; Complete Time: 23:35 cp Administered Medications: 03/01 23:30 Drug: NS 0.9% IV 1000 ml IV at 1 bolus Per protocol; to be given as a bolus over 60 jj7 minutes Route: IV; Rate: 1 bolus; Site: right antecubital; 03/02 04:19 Follow up: IV Status: Completed infusion j7 03/01 23:30 Drug: Dexamethasone IVP 10 mg IVP once; (not to exceed 40 mg) Route: IVP; Site: right [facility] antecubital; 03/02 00:00 Follow up: Response: Marked relief of symptoms 7 03/01 23:30 Drug: Methocarbamol IVPB 1 grams IVPB once over 1 hrs; (mix in NS 100 mL) Route: IVPB; j7 Infused Over: 1 hrs; Site: right antecubital; 03/02 02:46 Follow up: IV Status: Completed infusion j 02:20 Drug: NS 0.9% IV 1000 ml IV at 1000 ml once; to be given as a bolus over 60 minutes j Route: IV; Rate: 1000 ml; Site: right antecubital; 04:13 Follow up: IV Status: Completed infusion j7 04:19 Follow up: IV Status: Infusion continued upon transfer j 02:20 Drug: Piperacillin-Tazobactam IVPB 3.375 grams IVPB once over 60 mins; (mix in NS 100 jj7 mL) Route: IVPB; Infused Over: 60 mins; Site: right antecubital; 04:13 Follow up: IV Status: Completed infusion 02:20 Drug: HYDROmorphone IVP 1 mg IVP once Route: IVP; Site: right antecubital; 02:40 Follow up: Response: Marked relief of symptoms; Pain is decreased Disposition: 05:45 Co-signature as Attending Physician, Fawad Lee MD I reviewed the patient's care rn provided by the Advanced Practice Provider and agree with the diagnosis and treatment plan. Disposition Summary: 03/02/25 01:37 Transfer Ordered Notes: Transfer Location: [facility] cp Reason: Higher level of care cp Condition: Stable cp Problem: new cp Symptoms: have improved cp Accepting Physician: doctor(03/02/25 04:18) jj7 Diagnosis - Calculus of gallbladder and bile duct with acute cholecystitis with obstruction cp - Abnormal results of liver function studies cp - Abnormal findings on diagnostic imaging of liver and biliary tract cp Forms: - Medication Reconciliation Form cp - SBAR form cp Signatures: Dispatcher [employer] EDMS Fawad Lee MD MD rn Thang Carranza PA PA Priya Harris RN RN lg3 Judit Treviño RN RN jj7 Corrections: (The following items were deleted from the chart) 01:04 01:04 Abdomen Limited+US.RAD.BRZ ordered. EDMS EDMS 01:35 01:35 LACTATE+C.LAB.BRZ ordered. EDMS EDMS 01:35 01:35 BLOOD CULTURE*+BA.LAB.BRZ ordered. EDMS EDMS 04:18 01:37 doctor cp jj7 03/03 01:30 01:02 Back: Positive for pain at rest, pain with movement, of the left subscapular cp area, right subscapular area and mid back area, cp
--- NOTE | 2025-03-02 01:38 | ER ---
Nurse's Notes [facility] Name: Mat Bates Jr Age: 25 yrs Sex: Male : 2000 Arrival Date: 03/01/2025 Time: 22:11 Bed 6 Private MD: Diagnosis: Calculus of gallbladder and bile duct with acute cholecystitis with obstruction;Abnormal results of liver function studies;Abnormal findings on diagnostic imaging of liver and biliary tract Presentation: 03/01 22:45 Chief complaint: Patient states: seen here today for middle back pain and discharged. lg3 the pain is not getting any better and the medications prescribed are not helping. Coronavirus screen: Client denies travel out of the [place] in the last 14 days. At this time, the client does not indicate any symptoms associated with coronavirus-19. Ebola Screen: No symptoms or risks identified at this time. Initial Sepsis Screen: Does the patient meet any 2 criteria? No. Patient's initial sepsis screen is negative. Does the patient have a suspected source of infection? No. Patient's initial sepsis screen is negative. Risk Assessment: Do you want to hurt yourself or someone else? Patient reports no desire to harm self or others. Onset of symptoms is unknown. 22:45 Method Of Arrival: Ambulatory lg3 22:45 Acuity: RONIT 4 lg3 Triage Assessment: 22:47 General: Appears in no apparent distress. uncomfortable, Behavior is calm, cooperative. lg3 Pain: Complains of pain in mid back area. EENT: No deficits noted. No signs and/or symptoms were reported regarding the EENT system. Neuro: No deficits noted. Alford Agitation-Sedation Scale (RASS): 0 - Alert and Calm Level of Consciousness is awake, alert, obeys commands, Oriented to person, place, time, situation. Cardiovascular: No deficits noted. Denies chest pain, shortness of breath, Capillary refill < 3 seconds Clubbing of nail beds is absent JVD is absent Patient's skin is warm and dry. Respiratory: No deficits noted. Airway is patent Respiratory effort is even, unlabored, Respiratory pattern is regular, symmetrical. GI: No deficits noted. No signs and/or symptoms were reported involving the gastrointestinal system. : No signs and/or symptoms were reported regarding the genitourinary system. Derm: No deficits noted. No signs and/or symptoms reported regarding the dermatologic system. Skin is intact, is healthy with good turgor, Skin is dry, Skin is normal, Skin temperature is warm. Musculoskeletal: Circulation, motion, and sensation intact. Range of motion: intact in all extremities, Reports pain in back. Historical: - Allergies: 22:47 PORK/PORCINE PRODUCT DERIVATIVES; lg3 - PMHx: 22:47 Asthma; lg3 - PSHx: 22:47 right arm; lg3 - Immunization history:: Adult Immunizations up to date. - Infectious Disease History:: Denies. - Social history:: Smoking status: Patient denies any tobacco usage or history of. Patient/guardian denies using alcohol, street drugs. Screenin:20 [facility] ED Fall Risk Assessment (Adult) History of falling in the last 3 months, jj7 including since admission No falls in past 3 months (0 pts) Confusion or Disorientation No (0 pts) Intoxicated or Sedated No (0 pts) Impaired Gait Yes (1 pt) Mobility Assist Device Used No (0 pt) Altered Elimination No (0 pt) Score/Fall Risk Level 0 - 2 = Low Risk Oriented to surroundings, Maintained a safe environment, Educated pt \T\ family on fall prevention, incl call for assistance when getting out of bed, Assessed \T\ reinforced patient's understanding of fall precautions. Abuse screen: Denies threats or abuse. Nutritional screening: No deficits noted. Tuberculosis screening: No symptoms or risk factors identified. Assessment: 23:20 General: Appears in no apparent distress. uncomfortable, Behavior is calm, cooperative, jj7 appropriate for age. Pain: Complains of pain in back. Neuro: No deficits noted. Neuro: Level of Consciousness is awake, alert, obeys commands. : Reports burning with urination, since X2 DAY. Musculoskeletal: Reports pain in back. 03/02 03:20 Reassessment: REPORT GIVEN TO BJ KEN AT [facility]. jj7 04:13 Reassessment: [facility] TO TRANSPORT PT TO [facility]. jj7 Vital Signs: 03/01 22:45 BP 143 / 92; Pulse 71; Resp 16 S; Temp 97.8(O); Pulse Ox 100% on R/A; Weight 117.93 kg lg3 (R); Height 5 ft. 11 in. (R); Pain 10/10; 23:50 BP 124 / 76; Pulse 65; Resp 17; Pulse Ox 98% ; jj7 03/02 00:45 BP 132 / 74; Pulse 58; Resp 20; Pulse Ox 99% ; jj7 02:00 BP 127 / 84; Pulse 73; Resp 20; Pulse Ox 98% ; Pain 0/10; jj7 03:00 BP 130 / 77; Pulse 61; Resp 20; Pulse Ox 98% ; jj7 04:00 BP 130 / 79; Pulse 55; Resp 20; Pulse Ox 96% ; jj7 03/01 22:45 Body Mass Index 36.26 (117.93 kg, 180.34 cm) lg3 03/01 22:45 Pain Scale: Adult lg3 02:00 Pain Scale: Adult j7 ED Course: 03/01 22:13 Patient arrived in ED. jj6 22:25 Thang Carranza PA is PHCP. cp 22:25 Fawad Lee MD is Attending Physician. cp 22:47 Triage completed. lg3 22:47 Arm band placed on right wrist. lg3 23:03 Judit Treviño, RN is Primary Nurse. jj7 23:20 Patient has correct armband on for positive identification. Bed in low position. Call jj7 light in reach. Provided Education on: USE OF CALL ARRIETA. Warm blanket given. 23:33 D-Dimer Sent. jj7 23:33 UDS Sent. jj7 23:35 CBC with Diff Sent. jj7 23:35 CMP Sent. jj7 23:35 Lipase Sent. jj7 23:40 XRAY Chest (1 view) In Process Unspecified. EDMS 23:56 UDS Sent. jj7 03/02 01:01 CT Abd/Pelvis - IV Contrast Only In Process Unspecified. EDMS 01:21 US Abdomen Limited: gallbladder In Process Unspecified. EDMS 01:40 initiated transfer with [facility] spoke with Sarita. vk 02:15 First set of blood cultures drawn by me, Second set of blood cultures drawn by me. jj7 02:46 Blood Culture Adult (2) Sent. jj7 02:46 Lactate w/ 2H reflex if indic. Sent. jj7 03:01 Patient was accepted to [facility] to RM 1823 to \[id number] accepting admin Sarita ramirez \T\[id number]. 03:56 initiated with [facility] spoke with titus patient was accepted. vk 04:18 No provider procedures requiring assistance completed. Patient transferred, IV remains jj7 in place. Administered Medications: 03/01 23:30 Drug: NS 0.9% IV 1000 ml IV at 1 bolus Per protocol; to be given as a bolus over 60 jj7 minutes Route: IV; Rate: 1 bolus; Site: right antecubital; 03/02 04:19 Follow up: IV Status: Completed infusion jj7 03/01 23:30 Drug: Dexamethasone IVP 10 mg IVP once; (not to exceed 40 mg) Route: IVP; Site: right [facility] antecubital; 03/02 00:00 Follow up: Response: Marked relief of symptoms jj7 03/01 23:30 Drug: Methocarbamol IVPB 1 grams IVPB once over 1 hrs; (mix in NS 100 mL) Route: IVPB; jj7 Infused Over: 1 hrs; Site: right antecubital; 03/02 02:46 Follow up: IV Status: Completed infusion jj7 02:20 Drug: NS 0.9% IV 1000 ml IV at 1000 ml once; to be given as a bolus over 60 minutes jj7 Route: IV; Rate: 1000 ml; Site: right antecubital; 04:13 Follow up: IV Status: Completed infusion jj7 04:19 Follow up: IV Status: Infusion continued upon transfer jj7 02:20 Drug: Piperacillin-Tazobactam IVPB 3.375 grams IVPB once over 60 mins; (mix in NS 100 jj7 mL) Route: IVPB; Infused Over: 60 mins; Site: right antecubital; 04:13 Follow up: IV Status: Completed infusion jj7 02:20 Drug: HYDROmorphone IVP 1 mg IVP once Route: IVP; Site: right antecubital; j7 02:40 Follow up: Response: Marked relief of symptoms; Pain is decreased j7 Medication: 03/01 23:20 VIS not applicable for this client. jj7 Outcome: 03/02 01:37 ER care complete, transfer ordered by MD. trinidad 04:16 Transferred by [facility] [place]. to [facility] [place] Transfer form jj7 completed. X-rays sent w/ patient. 04:16 Condition: improved 04:18 Patient left the ED. jj7 Signatures: Dispatcher [employer] EDMS Thang Carranza PA PA cp Able, Lacie, RN RN lg3 Kenia Thomas jj6 Judit Treviño RN RN jj7 Joan Stephen
[2025-03-02] MEDS ORDERED: NA CHLORIDE 0.9% 100 ML ONE (02:04)
[2025-03-02] MEDS ORDERED: PIPERACIL/TAZO 3.375 GM VIAL IV ONE (02:04)
[2025-03-02] MEDS ORDERED: HYDROMORPHONE HCL 1 MG/ML INJ ONE (02:04)
[2025-03-02] MEDS ORDERED: NA CHLORIDE 0.9% 1,000 ML ONE (02:04)
--- NOTE | 2025-03-02 02:47 | RAD REPORT ---
CLINICAL HISTORY: back pain, elevated liver enzymes COMPARISON: None. TECHNIQUE: CT ABDOMEN PELVIS WITH IV CONTRAST on 03/02/2025 12:15 AM CDT This exam was performed according to our departmental dose-optimization program, which includes autom ated exposure control, adjustment of the mA and/or kV according to patient size and/or use of iterative reconstruction technique. FINDINGS: Lower lungs are clear. Abdomen: The liver is normal in appearance. There is moderate intra and extrahepatic biliary dilatati on. Gallbladder contains multiple calcifications. The pancreas and spleen are normal in appearance. The adrenal glands and kidneys are unremarkable. Abdominal aorta is normal in course and caliber without aneurysm. There is no free air. There is no r etroperitoneal adenopathy. Pelvis: There is no bowel obstruction. Urinary bladder is unremarkable. There is no free fluid. Appen chris is normal. Skeleton: There are no acute osseous findings. No suspicious bony lesions. IMPRESSION: Moderate diffuse biliary dilatation. Recommend MRCP. Electronically signed by: Davy Madrigal MD 03/02/2025 02:44 AM CDT Due to temporary technical issues with the PACS/[employer] reporting system, reports are being adan d by the in-house radiologist without review as a courtesy to ensure prompt reporting the interpreting radiologist is fully responsible for the content of the report. Transcribed Date/Time: 03/02/2025 2:47 AM
[2025-03-02 04:22] VITALS: TEMP 97.8
[2025-03-02 04:31] VITALS: BP 130/79; O2SAT 96
--- NOTE | 2025-03-02 06:41 | RAD REPORT ---
EXAM DESCRIPTION: Abdomen Exam Limited RadLex: US ABDOMEN LIMITED CLINICAL HISTORY: 25 years Male, back pain COMPARISON: CT abdomen pelvis 03/02/2025 FINDINGS: Grayscale and color Doppler images were obtained of the right upper quadrant in the region of the gal lbladder. Diffuse shadowing from the gallbladder probably due to numerous stones. Cannot exclude calcifications in the gallbladder wall. Visualized portion of the gallbladder wall measures up to 0.2 cm. Common duct is dilated, measuring up to 0.9 cm. Partially visualized central intrahepatic biliary dilatation. IMPRESSION: 1. Cholelithiasis. Cannot exclude calcifications in the gallbladder wall. 2. Dilated common duct and are slightly visualized central intrahepatic biliary dilatation. MRCP co uld be performed for further evaluation. Electronically signed by: Yaneth Leung MD 03/02/2025 03:11 AM CDT Due to temporary technical issues with the PACS/[employer] reporting system, reports are being adan d by the in-house radiologist without review as a courtesy to ensure prompt reporting the interpreting radiologist is fully responsible for the content of the report. Transcribed Date/Time: 03/02/2025 6:41 AM
--- NOTE | 2025-03-02 08:34 | RAD REPORT ---
EXAM: XR Chest 1 View AP HISTORY: back pain COMPARISON: Chest 1 View AP 02/16/2025 report without image TECHNIQUE: Chest 1 View AP FINDINGS: Trachea midline. Heart size and pulmonary vessels within normal limits. Lungs clear without evidence of consolidation, mass, or significant pulmonary edema. No significant pleural effusion or pneumothorax. Bones unremarkable. IMPRESSION: Normal chest radiograph. Electronically signed by: Familia Scott MD 03/02/2025 07:20 AM CDT RP Due to temporary technical issues with the PACS/[employer] reporting system, reports are being adan d by the in-house radiologist without review as a courtesy to ensure prompt reporting the interpreting radiologist is fully responsible for the content of the report. Transcribed Date/Time: 03/02/2025 8:34 AM
== END 2025-03-02 04:18 | disposition short-term general hospital (02) ==
LOC: ER 22:11
DX: K80.63 Calculus of gallbladder and bile duct with acute cholecystitis with obstruction (principal); R94.5 Abnormal results of liver function studies; R93.2 Abnormal findings on diagnostic imaging of liver and biliary tract
CPT/HCPCS: 36415; 71045; 74177; 76705; 80053; 80307; 83605; 83690; 85025; 85379; 87040; 96365; 96366; 96375; 99285; J1100; J1171; J2543; J2800; J7030; Q9967